=== PATIENT | male | born 1940 | race Caucasian/White ===

== ENCOUNTER 2020-03-17 10:45 | Inpatient (IN) | payer MEDICARE, OTHER ==
[~2020-03-17] VITALS: Ht 172.7 cm; Wt 72.4 kg
[~2020-03-17 10:45] MED LIST: ALBUAER3 IN; BUDE0.253 IN; IPRAAER6 IN; KETO0.3S RIGHTEYE; LEVO500T21 PO; MONT10TA34 PO; PRED1SUS31 OP
[2020-03-17] MEDS ORDERED: methylPREDNISolone SOD SUCC 125 MG/2 ML VL IV ONE (11:00)
[2020-03-17] MEDS ORDERED: ASCORBIC ACID 500 MG TAB PO ONE (11:30)
[2020-03-17] MEDS ORDERED: cefTRIAXone 1GM/50ML D5W 50 ML IV ONE (11:30)
[2020-03-17] MEDS ORDERED: AZITHROMYCIN 500MG/ 250ML 250 ML IV ONE (11:30)
[2020-03-17 12:04] LABS: Basophils # (auto) 0 10 ^3/uL (0-0.2); Basophils % (auto) 0.1 % (0.0-2.0); Eosinophils # (auto) 0 10 ^3/uL (0-0.8); Eosinophils % (auto) 0.1 % (0.0-7.0); Hemoglobin 15.8 g/dL (13.5-17.5); Lymphocytes # (auto) 0.4 10 ^3/uL (0.4-5.4); Lymphocytes % (auto) 4.3 % (10.0-50.0); Mean Corpuscular Hemoglobin 30.1 pg (28.0-32.0); Mean Corpuscular Hgb Conc. 31.6 g/dL (32.0-36.0); Mean Corpuscular Volume 95.3 fL (80.0-100.0); Monocytes # (auto) 0.6 10 ^3/uL (0-1.3); Monocytes % (auto) 5.8 % (0.0-12.0); Neutrophils # (auto) 8.9 10 ^3/uL (1.6-8.6); Neutrophils % (auto) 89.7 % (37.0-80.0); Platelet Count (auto) 207 10^3/uL (140-450); Red Blood Cells 5.25 10^6/uL (4.5-5.90); Red Cell Distribution Width 14.6 % (11.8-14.3)
[2020-03-17] MEDS ORDERED: SODIUM CHLORIDE 0.9% 500 ML IV ONE (12:15)
[2020-03-17 12:17] LABS: Lactic Acid w/Reflex 2.1 mmol/L (0.4-2.0)
[2020-03-17 12:20] LABS: Chloride 95 mmol/L (98-107); Potassium 4.8 mmol/L (3.5-5.1); Sodium 137 mmol/L (136-145)
[2020-03-17 12:29] LABS: Alanine Aminotransferase 22 U/L (16-61); Albumin 3.3 g/dL (3.4-5.0); Alkaline Phosphatase 75 U/L (45-117); Anion Gap 0 (5-15); Aspartate Aminotransferase 26 U/L (15-37); BUN/Creatinine Ratio 16.5; Bilirubin, Total 1.6 mg/dL (0.2-1.0); Blood Urea Nitrogen 14 mg/dL (7-18); Calcium 8.3 mg/dL (8.5-10.1); GFR African American 112 mL/min; GFR Non-African American 92 mL/min; Glucose 149 mg/dL (74-106); Magnesium 2.9 mg/dL (1.6-2.6); Total Protein 7.4 g/dL (6.4-8.2)
[2020-03-17] MEDS ORDERED: ENOXAPARIN SOD 80 MG/0.8ML SYRINGE SC ONE (12:30)
[2020-03-17 12:36] LABS: Carbon Dioxide 42 mmol/L (21-32)
[2020-03-17 12:55] LABS: CRP High Sensitivity 1.24 mg/dL (< 0.3)
[2020-03-17] MEDS ORDERED: NITROGLYCERIN 0.4 MG SL TAB SL PRN (13:30)
[2020-03-17] MEDS ORDERED: ACETAMINOPHEN 500 MG TAB PO PRN (13:30)
[2020-03-17] MEDS ORDERED: SODIUM CHLORIDE 0.9% 1,000 ML IV SCH (13:30)
[2020-03-17] MEDS ORDERED: MORPHINE SULF INJ 2 MG/ML SYRINGE 1ML IV PRN ×2 (13:30→13:45)
[2020-03-17] MEDS ORDERED: LACTULOSE 20Gm/30ML SOLN PO PRN (13:45)
[2020-03-17] MEDS ORDERED: [UNRECOGNIZED DRUG - OTHER] PO SCH (13:45)
[2020-03-17] MEDS ORDERED: TIOTROPIUM PO SCH (13:45)
[2020-03-17] MEDS ORDERED: ONDANSETRON HCL 4 MG/2 ML VIAL IV PRN (13:45)
[2020-03-17] MEDS ORDERED: ALBUTEROL SULF 2.5 MG/0.5ML(0.5%) NEB SOLN NEB PRN (13:45)
[2020-03-17] MEDS ORDERED: traMADol HCL 50 MG TAB PO PRN (13:45)
[2020-03-17] MEDS: CLINDAMYCIN 600MG IV 50 ML IV SCH ×2 (13:59→22:21)
[2020-03-17] MEDS: ALBUTEROL SULF HFA 90MCG INH 200DOSE IN SCH ×2 (14:00→22:00)
[2020-03-17 14:12] VITALS: BP 125/73
[2020-03-17 14:54] VITALS: BP 125/73
[2020-03-17] MEDS: DexAMETHasone SOD PHOS 10MG/1ML VIAL INJ IV SCH ×2 (16:20→20:18)
[2020-03-17 16:30] VITALS: BP 135/87
[2020-03-17] MEDS: IPRATROPIUM BROM 0.5 MG/2.5ML INH SOL NEB SCH (18:09)
[2020-03-17] MEDS: ALBUTEROL SULF 2.5 MG/0.5ML(0.5%) NEB SOLN NEB SCH (18:09)
[2020-03-17 18:10] VITALS: BP 134/92
--- NOTE | 2020-03-17 18:10 | NUR ---
Respiratory note: AT BEDSIDE IN FULL PPE DUE TO COVID R/O PRECAUTIONS. RECEIVED PT ON BIPAP B11, BIPAP CONNECTED TO RED OUTLET AN O2 SOURCE ALARMS ARE SET AND AUDIBLE. AMBU BAG AND MASK AT BEDSIDE. BS ARE DIMINISHED T/O WITH FINE WHEEZES HEARD IN BILATERAL UPPER LOBES. MED NEB TX GIVEN INLINE WITHOUT ADVERSE REACTION NOTED. RN AWARE OF REENTRY TIME DUE TO NEBULIZED TX, WILL CONTINUE TO MONITOR Q4H AND NEEDED.
[2020-03-17] MEDS: BUDESONIDE (INHALATION) 180 MCG IH IN SCH (22:00)
--- NOTE | 2020-03-17 22:07 | NUR ---
MDI AND DPI TX HELD DUE TO PENDING COVID RESULTS. PT RECEIVING NEBULIZED TX Q6 VIA BIPAP. WILL CONTINUE TO MONITOR PT.
[2020-03-17 22:25] VITALS: BP 142/84
--- NOTE | 2020-03-17 22:25 | NUR ---
Respiratory note: AT BEDSIDE FOR ROUTINE BIPAP CHECK. IN FULL PPE DUE TO COVID PRECAUTIONS. NO BIPAP CHANGES MADE PT STILL APPEARS CONFUSED. PT ASKED THIS RT "ARE YOU MY ?" AND ALSO "AM I ALIVE?" PT IS CALM BUT CONFUSED. THIS RT ASKED PT WHAT HIS NAME WAS PT REPLIED "WILLA". RN COMMUNICATED ON FINDINGS. WILL CONTINUE TO MONITOR.
[2020-03-18] MEDS: IPRATROPIUM BROM 0.5 MG/2.5ML INH SOL NEB SCH ×4 (00:53→18:56)
[2020-03-18] MEDS: ALBUTEROL SULF 2.5 MG/0.5ML(0.5%) NEB SOLN NEB SCH ×4 (00:53→18:56)
[2020-03-18] MEDS: DexAMETHasone SOD PHOS 10MG/1ML VIAL INJ IV SCH ×3 (02:04→12:55)
[2020-03-18 02:53] VITALS: BP 132/85
[2020-03-18 05:05] LABS: Basophils # (auto) 0 10 ^3/uL (0-0.2); Basophils % (auto) 0.5 % (0.0-2.0); Eosinophils # (auto) 0 10 ^3/uL (0-0.8); Hematocrit 47.2 % (41.0-53.0); Hemoglobin 15.2 g/dL (13.5-17.5); Lymphocytes # (auto) 0.7 10 ^3/uL (0.4-5.4); Lymphocytes % (auto) 11.8 % (10.0-50.0); Mean Corpuscular Hemoglobin 29.7 pg (28.0-32.0); Mean Corpuscular Hgb Conc. 32.1 g/dL (32.0-36.0); Mean Corpuscular Volume 92.3 fL (80.0-100.0); Monocytes # (auto) 0.3 10 ^3/uL (0-1.3); Monocytes % (auto) 5.3 % (0.0-12.0); Neutrophils # (auto) 5.1 10 ^3/uL (1.6-8.6); Neutrophils % (auto) 82.4 % (37.0-80.0); Nucleated Red Blood Cells % 0.1 %; Platelet Count (auto) 227 10^3/uL (140-450); Red Blood Cells 5.12 10^6/uL (4.5-5.90); White Blood Cell 6.2 10^3/uL (4.4-10.8)
[2020-03-18 05:22] LABS: Albumin 3.1 g/dL (3.4-5.0); Calcium 8.4 mg/dL (8.5-10.1); Potassium 4.1 mmol/L (3.5-5.1)
[2020-03-18 05:26] LABS: Bilirubin, Total 1.2 mg/dL (0.2-1.0); Total Protein 6.8 g/dL (6.4-8.2)
[2020-03-18] MEDS: CLINDAMYCIN 600MG IV 50 ML IV SCH ×2 (06:00→14:30)
[2020-03-18 06:46] VITALS: BP 135/89
[2020-03-18] MEDS ORDERED: ASCORBIC ACID 1,000 MG TAB PO SCH ×2 (10:00)
[2020-03-18] MEDS: BUDESONIDE (INHALATION) 180 MCG IH IN SCH (10:00)
[2020-03-18] MEDS ORDERED: CHOLECALCIFEROL (VITD3) 2,000 UNIT CAP PO SCH (10:00)
[2020-03-18] MEDS ORDERED: ENOXAPARIN SOD 40 MG/0.4 ML SYRINGE SC SCH (10:00)
[2020-03-18] MEDS ORDERED: ZINC SULFATE 220mg CAP or TAB PO SCH (10:00)
[2020-03-18] MEDS: levoFLOXacin 500MG 100 ML IV SCH (10:08)
[2020-03-18] MEDS: ENOXAPARIN SOD 40 MG/0.4 ML SYRINGE SC SCH (10:08)
[2020-03-18 10:25] VITALS: BP 129/80
[2020-03-18 11:13] LABS: Urine Bacteria NONE SEEN /hpf (None Seen); Urine Blood 2+ /uL (Negative); Urine Hyaline Cast FEW /lpf (0 - 2); Urine Mucus FEW (None Seen); Urine Specific Gravity 1.021 (1.001-1.035); Urine WBC 15 /hpf (0 - 3)
[2020-03-18 12:53] VITALS: BP 129/80
[2020-03-18] MEDS ORDERED: IOHEXOL 350 MG/ML 100ML IJ ONE (17:01)
--- NOTE | 2020-03-18 17:25 | NUR ---
ADMIT LEONIDAS BONE admitted to [facility] via gurney on monitoring and evaluation advisor, and portable 02. Patient transferred to bed, connected to unit monitoring and oxygen, and weighed by bed scale. Patient oriented to RAIN KEMP, primary RN, unit, room, bed, and unit policies regarding patient care and visiting hours. Patient with two PIVs, #20 to Left AC and #20 Right FA. Butler draining to gravity, clear yellow UOP. All questions and concerns addressed, patient verbalized understanding. VITAL SIGNS: 149/85, 99, 22, 91% on 6L NC, 98.4F orally, wt 155.2lbs/70.4kg 0/10 pain
[2020-03-18 18:22] VITALS: BP 149/85
--- NOTE | 2020-03-18 18:56 | NUR ---
END OF SHIFT NOTE Patient resting in bed after eating dinner. Patient with no s/s of distress. Patient remains on 6L NC with O2 sats 92%. Butler draining clear yellow UOP. Report to be given to ELINA VO.
[2020-03-18 20:00] VITALS: BP 127/77
[2020-03-18] MEDS: PIPERACILLIN-TAZO 4.5GM 100 ML IV SCH (21:15)
[2020-03-19] VITALS: BP 129/80
[2020-03-19] MEDS: IPRATROPIUM BROM 0.5 MG/2.5ML INH SOL NEB SCH ×4 (00:58→18:44)
[2020-03-19] MEDS: ALBUTEROL SULF 2.5 MG/0.5ML(0.5%) NEB SOLN NEB SCH ×4 (00:58→18:44)
[2020-03-19 04:11] VITALS: BP 106/58
[2020-03-19] MEDS: PIPERACILLIN-TAZO 4.5GM 100 ML IV SCH ×3 (05:06→22:25)
[2020-03-19] MEDS: methylPREDNISolone SOD SUCC 40 MG/ML VL IV SCH (05:06)
--- NOTE | 2020-03-19 07:50 | NUR ---
OPENING SHIFT NOTE REPORT RECEIVED FROM COMMUNITY SERVICES COORDINATOR RN, MORNING ASSESSMENT PERFORMED AND DOCUMENTED. 79 YEAR OLD MALE, SITTING UP IN BED WATCHING TELEVISION, ON 6 LITERS OXYGEN VIA NASAL CANNULA - NO DISTRESS NOTED, RESPIRATIONS EVEN AND UNLABORED. PATIENT DENIES PAIN OR DISCOMFORT AT THIS TIME. THIS NURSE DISCUSSED PLAN OF CARE WITH PATIENT, PATIENT VERBALIZED UNDERSTANDING. FALL AND SAFETY PRECAUTIONS IN PLACE. WILL CONTINUE TO MONITOR.
[2020-03-19 08:00] VITALS: BP 115/67
[2020-03-19] MEDS: ENOXAPARIN SOD 40 MG/0.4 ML SYRINGE SC SCH (08:49)
[2020-03-19] MEDS: levoFLOXacin 500MG 100 ML IV SCH (08:49)
--- NOTE | 2020-03-19 09:17 | NUR ---
Family updated on pt status Family of LIZANDROLEONIDAS updated on patient's status and condition after password verification. All questions and concerns addressed. Patient's spouse Po verbalized understanding.
--- NOTE | 2020-03-19 11:30 | NUR ---
PULMONOLOGY VISITS DR DYSON DISCUSSED RESPIRATORY STATUS WITH CATHY Hamm THIS NURSE UPDATED MD ON PATIENT'S STATUS. DR DYSON VERBALIZED UNDERSTANDING AND STATED PATIENT OK TO DOWNGRADE AFTER CTA IF STABLE PER PULMONOLOGY.
[2020-03-19 12:00] VITALS: BP 119/77
--- NOTE | 2020-03-19 12:05 | NUR ---
HOSPITALIST VISITS DR ALLRED UPDATED ON PATIENT'S STATUS AND OXYGEN REQUIREMENT OF 3 LITERS NASAL CANNULA. MD VERBALIZED UNDERSTANDING AND STATED PATIENT CAN BE DOWNGRADED LATER THIS EVENING - AWAITING CTA RESULTS. NO ORDERS AT THIS TIME.
[2020-03-19] MEDS ORDERED: IOHEXOL 350 MG/ML 100ML IJ ONE (12:30)
--- NOTE | 2020-03-19 14:10 | NUR ---
SPOKE WITH PULMONOLOGY/CTA RESULTS DR DYSON NOTIFIED OF CTA RESULTS AVAILABLE, MD VERBALIZED UNDERSTANDING NO ORDERS AT THIS TIME. WILL CONTINUE TO MONITOR.
--- NOTE | 2020-03-19 15:00 | NUR ---
CARDIOLOGY VISITS RECRUITING SPECIALIST STEVENSON JO VISITS AND UPDATED ON PATIENT'S STATUS AND REASON FOR CONSULT. RAQUEL JO VERBALIZED UNDERSTANDING - NO VERBAL ORDERS GIVEN AT THIS TIME.
--- NOTE | 2020-03-19 15:48 | NUR ---
CALL RECEIVED FROM GI/COMFORT/BONSAI TENDER AT BEDSIDE 1520 PHONE CALL RECEIVED FROM DR Ramirez ANDRADE MD UPDATED ON PATIENT'S STATUS AND REASON FOR CONSULT. MD VERBALIZED UNDERSTANDING AND STATED SHE WOULD COME IN TOMORROW TO EVALUATE PATIENT. 1525 COMPLETE BEDDING CHANGED, COMFORT MEASURES PROVIDED, PATIENT ABLE TO BRUSH TEETH INDEPENDENTLY. TOLERATED WELL. WILL CONTINUE TO MONITOR. FALL AND SAFETY PRECAUTIONS IN PLACE. 1548 BONSAI TENDER AT BEDSIDE.
--- NOTE | 2020-03-19 15:50 | NUR ---
Respiratory note: DR ALLRED PAGED FOR CRITICAL PO2 ABG RESULTS ON 3L NC. RN WENDY AWARE. PT PLACED BACK ON 5L NC. SPO2 92%. WILL CONTINUE TO MONITOR PT.
[2020-03-19 15:53] VITALS: BP 108/64
--- NOTE | 2020-03-19 15:55 | NUR ---
PAGED HOSPITALIST TO NOTIFY OF ABG RESULTS, AWAITING RESPONSE.
--- NOTE | 2020-03-19 16:55 | NUR ---
RETURN CALL FROM HOSPITALIST/PULMONOLOGY DR ALLRED AND DR DYSON UPDATED ON ABG RESULTS ON 3 LITERS OXYGEN VIA NASAL CANNULA. MDS VERBALIZED UNDERSTANDING AND HAD PREVIOUSLY ORDERED DOWNGRADE. BOTH MDS AGREED THAT PATIENT WILL REMAIN [facility] STATUS FOR CONTINUED MONITORING. PEARL CHARGE NURSE AWARE.
--- NOTE | 2020-03-19 18:47 | NUR ---
Family updated on pt status Family of LEONIDAS BONE updated on patient's status and condition after password verification. All questions and concerns addressed. Patient's spouse Po verbalized understanding. Regarding paperwork signed by patient, Po stated she would come pick it up tomorrow morning.
--- NOTE | 2020-03-19 19:40 | NUR ---
Opening Shift note Received report from day shift RN Chayito. Pt is AAOx4 lying in bed watching tv. Pt came in 10/ c/o SOB. When the patient came in his o2 saturations were in the 60's. Pt was placed on nonrebreather and spo2 went up to 98%. Pt is currently on 5.0L NC with spo2 at 87%. Pt has pertinent history of COPD, admitted to [facility] for bilateral PNA and ARF. Pt's respirations are even and unlabored. No s/s of distress noted at this time. Pt's denies pain and any other complaints at this time. Bed is locked at lowest position, side rails are up, call light within reach. Pt instructed to call if he needs anything. Will continue to monitor.
[2020-03-19 20:00] VITALS: BP 102/63
--- NOTE | 2020-03-19 22:25 | NUR ---
Zosyn Leaking Bag of zosyn leaking, wasted, and replaced.
[2020-03-20] VITALS (7 sets, daily range): BP systolic 95–104; BP diastolic 56–67
--- NOTE | 2020-03-20 | NUR ---
Rounds Pt is lying in bed, eyes closed, respirations are even and unlabored, VSS, HR (80's), spo2 (>95%), RR (14). No s/s of distress noted at this time. Pt denied any pains and doesn't have any complaints at this time. Will continue to monitor.
[2020-03-20] MEDS: IPRATROPIUM BROM 0.5 MG/2.5ML INH SOL NEB SCH ×4 (00:19→18:47)
[2020-03-20] MEDS: ALBUTEROL SULF 2.5 MG/0.5ML(0.5%) NEB SOLN NEB SCH ×4 (00:20→18:47)
--- NOTE | 2020-03-20 03:25 | NUR ---
CHG/bath/linen change CHG wipes/wash cloth bath & shower cap provided to the patient. Pt's sp02 went down to 80% when turned then went up to 89% with no activity. Will continue to monitor.
--- NOTE | 2020-03-20 03:44 | NUR ---
Post bath VS HR: 89 RR: 18 Spo2: 91% B/P: 104/61
[2020-03-20 03:45] LABS: Basophils # (auto) 0 10 ^3/uL (0-0.2); Basophils % (auto) 0.2 % (0.0-2.0); Eosinophils # (auto) 0 10 ^3/uL (0-0.8); Eosinophils % (auto) 0.3 % (0.0-7.0); Hematocrit 47.6 % (41.0-53.0); Hemoglobin 15.4 g/dL (13.5-17.5); Lymphocytes # (auto) 1.5 10 ^3/uL (0.4-5.4); Lymphocytes % (auto) 13.2 % (10.0-50.0); Mean Corpuscular Hemoglobin 29.4 pg (28.0-32.0); Mean Corpuscular Hgb Conc. 32.3 g/dL (32.0-36.0); Mean Corpuscular Volume 91.1 fL (80.0-100.0); Monocytes # (auto) 1.4 10 ^3/uL (0-1.3); Monocytes % (auto) 12.5 % (0.0-12.0); Neutrophils # (auto) 8.3 10 ^3/uL (1.6-8.6); Neutrophils % (auto) 73.8 % (37.0-80.0); Platelet Count (auto) 265 10^3/uL (140-450); Red Blood Cells 5.23 10^6/uL (4.5-5.90); Red Cell Distribution Width 14.3 % (11.8-14.3); White Blood Cell 11.3 10^3/uL (4.4-10.8)
--- NOTE | 2020-03-20 04:04 | NUR ---
Spo2 Spo2 down to 83%, oxygen increased to 6LPM. Will continue to monitor.
[2020-03-20 04:08] LABS: Albumin 2.8 g/dL (3.4-5.0); Calcium 8.3 mg/dL (8.5-10.1); Potassium 3.4 mmol/L (3.5-5.1)
[2020-03-20 04:11] LABS: BUN/Creatinine Ratio 26.7; Bilirubin, Total 1.1 mg/dL (0.2-1.0); Total Protein 6.3 g/dL (6.4-8.2)
[2020-03-20] MEDS: PIPERACILLIN-TAZO 4.5GM 100 ML IV SCH ×3 (06:04→21:40)
--- NOTE | 2020-03-20 07:30 | NUR ---
OPENING SHIFT NOTE PATIENT RESTING WITH EYES CLOSED, NO DISTRESS NOTED, RESPIRATIONS EVEN AND UNLABORED, VSS AND DOCUMENTED. PATIENT CURRENTLY ON 4 LITERS NASAL CANNULA. FALL AND SAFETY PRECAUTIONS IN PLACE, WILL CONTINUE TO MONITOR.
--- NOTE | 2020-03-20 09:06 | NUR ---
PAGED HOSPITALIST PENDING HOSPITALIST VISIT TO ASSESS PATIENT, PER SUNIL, ICU DIRECTOR REQUESTING DOWNGRADE ANYWAY, PAGED HOSPITALIST, AWAITING RESPONSE.
[2020-03-20] MEDS ORDERED: SODIUM CHLORIDE 0.9% 1,000 ML IV ONE (09:30)
[2020-03-20] MEDS ORDERED: POTASSIUM CHL 20 Meq TABLET PO ONE (09:30)
--- NOTE | 2020-03-20 09:31 | NUR ---
RETURN CALL FROM HOSPITALIST DR ALLRED UPDATED ON PATIENT'S STATUS, MORNING LABS AND SUNIL, ICU DIRECTOR REQUESTING DOWNGRADE. ORDERS FOR POTASSIUM REPLACEMENT RECEIVED AND TELE DOWNGRADE. CHARGE NURSE AWARE.
[2020-03-20] MEDS: ENOXAPARIN SOD 40 MG/0.4 ML SYRINGE SC SCH (09:53)
[2020-03-20] MEDS: methylPREDNISolone SOD SUCC 40 MG/ML VL IV SCH (09:54)
[2020-03-20] MEDS: levoFLOXacin 500 MG TAB PO SCH (09:55)
--- NOTE | 2020-03-20 10:30 | NUR ---
PAPERWORK PICKED UP BY SPOUSE ANTON STOPPED BY TO CHILD THERAPIST PERSONAL PAPERWORK PREVIOUSLY BROUGHT IN FOR PATIENT SIGNATURE AND BROUGHT IN PATIENT'S BLACK CELL PHONE MANAGER FORMS, PATIENT AWARE.
--- NOTE | 2020-03-20 11:20 | NUR ---
HOSPITALIST VISITS DR ALLRED VISITS PATIENTS AND UPDATED ON PATIENT'S CURRENT STATUS. MD DISCUSSES PLAN OF CARE WITH PATIENT, PATIENT VERBALIZED UNDERSTANDING AND AUTHORIZED DR ALLRED TO DISCUSS PLAN OF CARE WITH SPOUSE WELL. NO VERBAL ORDERS GIVEN AT THIS TIME.
--- NOTE | 2020-03-20 11:25 | NUR ---
Nutrition Assessment Notes: please see attached link for complete assessment [employer] needs BW 70 [id number] kcals (25-30kcal/kgBW), Est Protein needs: 70-84 gms/day (1.0-1.2 gm/kgBW). Will continue to monitor and reassess prn. Addendum: 03/20/20 at [address] Amended: Links added.
--- NOTE | 2020-03-20 14:45 | NUR ---
assessment Patient is a 79 year old male who is in [facility]. Per patients Po prior to admission patient lived home with her and family and was independent. Patient has a cpap for night, home oxygen and a nebulizer for home use. Patient uses the [facility] for PCP. Patient is on service with [facility]. I informed Po I will continue to monitor and follow up as appropriate for any post discharge needs. Patient will at least need a resumption order for home health. Po verbalized understanding and agreed to discharge plan home. Addendum: 03/20/20 at 1457 by Cassie VO Amended: Links added.
--- NOTE | 2020-03-20 19:25 | NUR ---
RECEIVED REPORT FROM NURSE NGUYEN TO RESUME CARE OF PATIENT.
--- NOTE | 2020-03-20 19:35 | NUR ---
Opening Shift Note Assumed care of patient, awake and alert. No S/S of distress/SOB on 4LNCor pain. Instructed on POC and to call for assist PRN, will continue to monitor for changes Q1hr and PRN.
--- NOTE | 2020-03-20 22:40 | NUR ---
PATIENT IS DOWNGRADED TO TELEMETRY. GAVE REPORT TO NURSE TAYLOR TO RESUME CARE OF PATIENT. Addendum: 03/20/20 at 2258 by PAYAM HESTER RN RN ALL BELONGINGS WITH PATIENT Addendum: 03/20/20 at 8314 by PAYAM HESTER RN RN ENDORSED TO NURSE TAYLOR PATIENT HAS ORDER TO COLLECT SPUTUM FOR CULTURE BUT PATIENT HAS NOT BEEN COUGHING TO PRODUCE ANY SPUTUM
--- NOTE | 2020-03-20 23:15 | NUR ---
PATIENT TRANSFERED TO TELEMETRY BED ALL BELONGINGS WITH PATIENT PATIENT IN NO APPARENT CARDIAC OR RESPIRATORY DISTRESS AND HAS NO COMPLAINTS OF PAIN OR ANY DISCOMFORT. PATIENT ACCOMPANIED BY NURSE BRANDON, NURSE BRUNILDA, AND NURSE COLLEEN.
--- NOTE | 2020-03-20 23:20 | NUR ---
Telemetry TRANSFER from [facility] admitted to Telemetry unit after SBAR received. Patient oriented to Alok Soto primary RN, unit, room 280, bed B, and unit policies regarding patient care and visiting hours. Patient now on continuous telemetry monitoring, tele box #54 and telemetry reading on arrival to unit is SR 90 with BBB. Patient placed on bedside oxygen, weighed by bedscale and encouraged to call if they need something. All questions and concerns addressed, patient verbalized understanding.
[2020-03-21 00:34] VITALS: BP 99/63
[2020-03-21] MEDS: IPRATROPIUM BROM 0.5 MG/2.5ML INH SOL NEB SCH ×4 (00:52→18:36)
[2020-03-21] MEDS: ALBUTEROL SULF 2.5 MG/0.5ML(0.5%) NEB SOLN NEB SCH ×4 (00:52→18:36)
[2020-03-21 05:00] VITALS: BP 112/71
[2020-03-21] MEDS: PIPERACILLIN-TAZO 4.5GM 100 ML IV SCH ×3 (05:55→22:17)
[2020-03-21 11:10] LABS: Calcium 8.4 mg/dL (8.5-10.1)
[2020-03-21] MEDS: levoFLOXacin 500 MG TAB PO SCH (11:13)
[2020-03-21] MEDS: methylPREDNISolone SOD SUCC 40 MG/ML VL IV SCH (11:13)
[2020-03-21] MEDS: ENOXAPARIN SOD 40 MG/0.4 ML SYRINGE SC SCH (11:14)
--- NOTE | 2020-03-21 19:00 | NUR ---
Opening Shift Note Assumed care of patient, awake and alert. No S/S of distress/SOB or pain. Saturating at 90% on 4LNC. Instructed on POC and to call for assist PRN, will continue to monitor for changes Q1hr and PRN. Bed placed in lowest position, bed alarm turned on and call light within reach.
[2020-03-21 22:26] VITALS: BP 118/74
[2020-03-22] MEDS: IPRATROPIUM BROM 0.5 MG/2.5ML INH SOL NEB SCH ×4 (00:08→19:03)
[2020-03-22] MEDS: ALBUTEROL SULF 2.5 MG/0.5ML(0.5%) NEB SOLN NEB SCH ×4 (00:08→19:03)
[2020-03-22 05:00] VITALS: BP 105/65
[2020-03-22] MEDS: PIPERACILLIN-TAZO 4.5GM 100 ML IV SCH ×2 (05:36→13:44)
[2020-03-22 09:00] VITALS: BP 100/54
[2020-03-22] MEDS: levoFLOXacin 500 MG TAB PO SCH (09:34)
[2020-03-22] MEDS: methylPREDNISolone SOD SUCC 40 MG/ML VL IV SCH (09:34)
[2020-03-22] MEDS: ENOXAPARIN SOD 40 MG/0.4 ML SYRINGE SC SCH (09:34)
[2020-03-22 13:00] VITALS: BP 97/57
[2020-03-22 16:46] VITALS: BP 110/65
[2020-03-22] MEDS ORDERED: cefTRIAXone 1GM/50ML D5W 50 ML IV ONE (21:00)
--- NOTE | 2020-03-22 22:00 | NUR ---
Pulse oxygenation noted to be 89% during 22:00 vital sign check. Patient reassessed by this RN, found to be 90% - 91% pulse oxygenation. Patient denies dyspnea, denies shortness of breath. No s/s of distress. Will continue to monitor.
[2020-03-22 22:06] VITALS: BP 112/70
[2020-03-23 05:39] VITALS: BP 109/63
[2020-03-23] MEDS: ALBUTEROL SULF 2.5 MG/0.5ML(0.5%) NEB SOLN NEB SCH ×4 (06:42→18:47)
[2020-03-23] MEDS: IPRATROPIUM BROM 0.5 MG/2.5ML INH SOL NEB SCH ×4 (06:42→18:47)
--- NOTE | 2020-03-23 06:48 | NUR ---
Closing Note Patient lying in bed, eyes closed, respirations even and unlabored, appears asleep. Patient awakens to name and touch. Bed in lowest locked position, call light within reach. Will endorse care to dayshift RN.
[2020-03-23 08:39] VITALS: BP 109/66
[2020-03-23] MEDS ORDERED: cefTRIAXone 1GM/50ML D5W 50 ML IV SCH (09:00)
[2020-03-23] MEDS ORDERED: predniSONE 20 MG TAB PO SCH (10:00)
[2020-03-23] MEDS: levoFLOXacin 500 MG TAB PO SCH (10:46)
[2020-03-23] MEDS: ENOXAPARIN SOD 40 MG/0.4 ML SYRINGE SC SCH (10:46)
--- NOTE | 2020-03-23 11:15 | NUR ---
MD AT BEDSIDE DR. 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
--- NOTE | 2020-03-23 11:29 | NUR ---
Fernandez catheter dc'd Order to discontinue fernandez catheter. Fernandez dc'd with clean technique following deflation of balloon. Patient tolerated well with no complaints of pain. Continue care.
[2020-03-23 11:30] LABS: Basophils # (auto) 0 10 ^3/uL (0-0.2); Basophils % (auto) 0.4 % (0.0-2.0); Eosinophils # (auto) 0.1 10 ^3/uL (0-0.8); Eosinophils % (auto) 1.4 % (0.0-7.0); Hematocrit 50.8 % (41.0-53.0); Lymphocytes # (auto) 1.5 10 ^3/uL (0.4-5.4); Lymphocytes % (auto) 15.7 % (10.0-50.0); Mean Corpuscular Hemoglobin 29.2 pg (28.0-32.0); Mean Corpuscular Hgb Conc. 31.4 g/dL (32.0-36.0); Monocytes % (auto) 10.8 % (0.0-12.0); Neutrophils # (auto) 6.7 10 ^3/uL (1.6-8.6); Neutrophils % (auto) 71.7 % (37.0-80.0); Nucleated Red Blood Cells % 0.1 %; Platelet Count (auto) 253 10^3/uL (140-450); Red Blood Cells 5.46 10^6/uL (4.5-5.90); Red Cell Distribution Width 14.6 % (11.8-14.3); White Blood Cell 9.4 10^3/uL (4.4-10.8)
[2020-03-23 11:54] LABS: BUN/Creatinine Ratio 26.7; Calcium 8.5 mg/dL (8.5-10.1); Potassium 4.3 mmol/L (3.5-5.1)
[2020-03-23 12:32] VITALS: BP 123/66
--- NOTE | 2020-03-23 13:00 | NUR ---
Patient voided per urinal with no difficulty.
[2020-03-23] MEDS ORDERED: DOXY-340 PO (13:23)
[2020-03-23] MEDS ORDERED: AMOX500T86 PO (13:23)
[2020-03-23] MEDS ORDERED: ATOR40TA52 PO (13:24)
[2020-03-23] MEDS ORDERED: PANT40TA2 PO (13:26)
[2020-03-23] MEDS ORDERED: METH4PAK PO (13:26)
[2020-03-23] MEDS ORDERED: ASPI-231 PO (13:28)
[2020-03-23 14:00] VITALS: BP 125/66
[2020-03-23 14:34] VITALS: BP 123/66
--- NOTE | 2020-03-23 15:30 | NUR ---
TALKED TO NADIYA FROM [facility] REGARDING PATIENT BEING DISCHARGE TODAY AND SHE WILL WILL CALL BACK REGARDING PATIENT'S TRANSPORTATION HOME.
[2020-03-23 16:32] VITALS: BP 116/68
--- NOTE | 2020-03-23 16:35 | NUR ---
NADIYA OF [facility] CALLED. PATIENT WILL BE PICKED UP TONIGHT AT 2215 BY [facility].
--- NOTE | 2020-03-23 18:00 | NUR ---
Discharge instructions AND prescriptions given as ordered. Encourage to follow up with PMD as instructed. All questions and concerns addressed. Patient verbalized understanding. Medication reconciliation form completed and copy given to patient. Telemetry unit returned to ICU. Patient waiting for transport back to home which was arranged by [facility].
--- NOTE | 2020-03-23 19:18 | NUR ---
Report given to Roberta VO. Patient waiting for transport to home which was scheduled for 2215 hrs with [facility] transport. No changes noted in patient's condition.
--- NOTE | 2020-03-23 22:27 | NUR ---
Discharge instructions given as ordered by paula RN. Encourage to follow up with PMD as instructed. All questions and concerns addressed. Patient verbalized understanding. Medication reconciliation form completed and copy given to patient. IV removed with catheter intact, pressure dressing applied. Telemetry unit returned to ICU by paula VO. Patient taken to vehicle via gurney with all personal belongings, accompanied by [facility] transport staff. No distress noted at time of departure.
== END 2020-03-23 22:27 | disposition hospice, home (50) | DRG 871 ==
LOC: EDBD 10:45 → ER 10:45 → TELE 10:46 → DOU IN ICU 03-18 17:03 → TELE-WESTW 03-20 23:16
PROVIDERS: ADMIT Internal Medicine; ATTEND Internal Medicine Nephrology
PROC: 5A09357 Assistance with Respiratory Ventilation, Less than 24 Consecutive Hours, Continuous Positive Airway Pressure (ICD-10-PCS; principal; 2020-03-17)
PROC: 5A09357 Assistance with Respiratory Ventilation, Less than 24 Consecutive Hours, Continuous Positive Airway Pressure (ICD-10-PCS; 2020-03-18)
DX: A40.8 Other streptococcal sepsis (principal); J18.9 Pneumonia, unspecified organism; G93.41 Metabolic encephalopathy; J96.21 Acute and chronic respiratory failure with hypoxia; J96.22 Acute and chronic respiratory failure with hypercapnia; E87.2 Acidosis; J98.11 Atelectasis; R65.20 Severe sepsis without septic shock; I10 Essential (primary) hypertension; K80.20 Calculus of gallbladder without cholecystitis without obstruction; E87.8 Other disorders of electrolyte and fluid balance, not elsewhere classified; J43.9 Emphysema, unspecified; I27.21 Secondary pulmonary arterial hypertension; Z51.5 Encounter for palliative care; Z20.828 Contact with and (suspected) exposure to other viral communicable diseases; Z87.891 Personal history of nicotine dependence; Z82.49 Family history of ischemic heart disease and other diseases of the circulatory system; Z79.899 Other long term (current) drug therapy; I77.1 Stricture of artery
CPT/HCPCS: 36415; 36600; 71045; 71275; 80048; 80053; 80061; 81001; 82728; 82805; 83605; 83615; 83735; 83880; 84484; 85025; 85379; 86141; 87040; 87077; 87186; 87426; 93306; 93970; 94640; 94660; 96365; 99291; G0378; J0696; J1100; J1956; J2543; J3490